=== PATIENT | male | born 2000 | race Caucasian/White ===

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

== ENCOUNTER → 2021-04-24 08:45 | Outpatient (CLI) | payer OTHER, MEDICAID, SELFPAY ==
[2021-04-24 09:22] LABS: COVID19 -Nasal RAPID Negative (Negative)
== END ==
PROVIDERS: Visit Provider Physician Assistant
DX: Z20.822 Contact with and (suspected) exposure to COVID-19 (principal); J02.9 Acute pharyngitis, unspecified
CPT/HCPCS: 87070; 87635; 87880

== ENCOUNTER 2022-07-21 23:16 | Emergency (ER) | payer OTHER, MEDICAID, SELFPAY ==
[2022-07-21 23:25] VITALS: BP 150/80; PULSE 72; RESP 18; TEMP 36.4; O2SAT 97
[2022-07-21] MEDS: DOXYCYCLINE HYCLATE 100 MG TABLET PO (23:42)
--- NOTE | 2022-07-21 23:55 | PC.NURSE ---
Exam deferred to DR Humphrey.
--- NOTE | 2022-07-22 06:54 | ED.EXTPRO ---
HPI - Extremity Problem General Chief complaint: Extremity Injury, Upper Stated complaint: left middle finger swollen and hurts to touch Time Seen by Provider: 07/21/22 23:29 Source: patient Mode of arrival: Ambulatory History of Present Illness HPI Narrative: 21-year-old male smoker presents with significant other and a chief complaint of pain and swelling of his left middle finger after an injury about 2 weeks ago. He states that he was helping a friend move furniture when he cut his finger on the edge of a dresser, he did not think anything of it and did not seek treatment. Over the past few days he started to get swelling of his middle finger and increasing pain. He is able to make a fist and denies any redness, pain or swelling of the remainder of his hand. His tetanus is up-to-date. He denies any red streaks or systemic complaints such as fever, chills nor nausea or vomiting Related Data Previous Rx's Medication Instructions Recorded doxycycline hyclate 100 mg tablet 100 mg PO BID #20 tabs 07/21/22 Allergies Allergy/AdvReac Type Severity Reaction Status Date / Time No Known Drug Allergies Allergy Verified 08/04/19 09:43 Review of Systems Review of Systems Narrative: GENERAL: Denies chills, fatigue, malaise, fever, sweats. HEENT: Denies sinus pain, ear pain, sore throat, difficulty swallowing, dizziness. RESPIRATORY: Denies dyspnea, cough, wheezing, hemoptysis, sputum. CARDIOVASCULAR: Denies chest pain, palpitations, orthopnea, edema, GASTROINTESTINAL: Denies nausea, vomiting, abdominal pain, diarrhea, constipation, melena. : Denies dysuria, frequency, incontinence, hematuria, urinary retention. MUSCULOSKELETAL: See HPI SKIN: Denies rash, skin lesions, or other NEUROLOGIC: Denies weakness, headache, numbness, change in speech, confusion, seizures, incoordination. PSYCHIATRIC: No concerning psychosocial issues. 12 point review of systems is negative except for those stated above Patient History Medical History Sinusitis Social History Smoking Status: Current every day smoker Smoking Status: Current every day smoker alcohol intake frequency: a few times a month Substance Use Type: does not use Exam Narrative Exam Narrative: GEN: AOx3 and in mild distress EYES: Pupils are equal, round, and reactive to light and accommodation. Extraoccular muscles are intact bilaterally. There is no subconjunctival hemorrhage or exudate. CHEST: Lungs are clear to auscultation bilaterally and free of wheezes, rales, or rhonchi. Heart rate is regular rhythm, there are no murmurs, clicks, rubs, or gallops. There is no chest wall tenderness. ABD: Abdomen is soft and nontender. There is no guarding or rebound. Bowel sounds are normal in all 4 quadrants. There is no mass or organomegaly. EXT: Full but slightly painful range of motion of the fingers of left hand, patient able to make a fist, there is some swelling and a healing wound on the flexor surface of the middle finger overlying the PIP. There is no fusiform swelling, no red streaks, no fluctuance or induration. No pain on palpation along flexor tendon to suggest flexor tenosynovitis SKIN: Warm, pink, and dry. No erythema or rash Initial Vital Signs Initial Vital Signs: Vital Signs Temperature 97.5 F L 07/21/22 23:25 Pulse Rate 72 07/21/22 23:25 Respiratory Rate 18 07/21/22 23:25 Blood Pressure 150/80 H 07/21/22 23:25 Pulse Oximetry 97 07/21/22 23:25 Oxygen Delivery Method 07/21/22 23:25 Course Orders Ordered: Discontinued Medications Doxycycline Hyclate (Doxycycline Hyclate 100 Mg Tablet) 100 mg PO NOW ONE Stop: 07/21/22 23:35 Last Admin: 07/21/22 23:42 Dose: 100 mg Documented By: AP Vital Signs Vital signs: Vital Signs - 8 hr 07/21/22 23:25 Temperature 97.5 F L Pulse Rate 72 Respiratory Rate 18 Blood Pressure 150/80 H Pulse Oximetry 97 Oxygen Delivery Method Room Air MDM - Extremity (Nontraumatic) MDM Narrative Medical decision making narrative: [21-year-old male smoker with left middle finger injury now swollen] Multiple etiologies for patient's symptoms considered including, but not limited to: [Cellulitis, abscess, flexor tenosynovitis versus other] Prior Charts reviewed: Prior primary care visits noted Patient with remote laceration and now development of redness and swelling but no sign of abscess. Tenosynovitis considered but thought unlikely given lack of pain along flexor tendon, fusiform swelling, painful passive extension, etc.. No evidence of felon. Tetanus is up-to-date. Findings and discharge diagnosis discussed with patient/family followed by verbalization of understanding Return precautions discussed with patient/family whom verbalize understanding of diagnosis and plan Discharge Plan Departure Patient Disposition: Home Clinical Impression: Cellulitis of finger of left hand Instructions: DI for Cellulitis -- Adult Activity Restrictions/Additional Instructions: *You have been diagnosed with [left middle finger cellulitis without evidence of abscess or tenosynovitis] *What to do: *Please continue to take your regular medications as directed. [x ] New medication prescriptions sent to your pharmacy: [ [facility]] [ ] New medication written as a paper prescription [ ] No new medications given *Please follow up with your primary care provider in 2-3 days, call for an appointment. Let them know you were seen in the Emergency Department and that we ask that you be seen in follow up. We will electronically transmit a record of today's note if your PCP is in our system *If you do not have a primary care provider please contact the [facility] Resource line at [phone]. They will ask some questions about your medical history and help get you set up with a doctor in the community. *Return to Emergency Department if you should have any new, worsening or concerning symptoms, such as [fever greater than 101 F, shaking chills, worsening pain, persistent vomiting or other bothersome symptoms] Prescriptions: New doxycycline hyclate 100 mg tablet 100 mg PO BID Qty: 20 0RF Referrals: Miscellaneous,DoctorMD [Primary Care Provider] - Stand Alone Forms: Patient Portal/API
== END 2022-07-21 23:56 | disposition home or self-care (01) ==
PROVIDERS: Emergency Provider Emergency Medicine
DX: L03.114 Cellulitis of left upper limb (principal)
CPT/HCPCS: 99283

== ENCOUNTER 2022-07-24 10:11 | Emergency (ER) | payer OTHER, MEDICAID, SELFPAY ==
[2022-07-24 10:13] VITALS: BP 123/70; PULSE 67; RESP 16; TEMP 36.8; O2SAT 100; BMI 17.9
--- NOTE | 2022-07-24 11:09 | ED.SKABFB ---
HPI - Skin/Abscess/Foreign Bdy General Chief complaint: Skin/Abscess/Foreign Body Stated complaint: Infection in finger Time Seen by Provider: 07/24/22 10:47 Source: patient Mode of arrival: Ambulatory Limitations: no limitations History of Present Illness HPI narrative: Patient seen here 2 days ago and treated for left finger cellulitis. At that time no drainable abscess. Patient states this morning had a lot of discharge that he pushed out of the wound. Has a wound to the volar aspect of the D IP joint of the left 3rd finger. No numbness or tingling. Related Data Previous Rx's Medication Instructions Recorded doxycycline hyclate 100 mg tablet 100 mg PO BID #20 tabs 07/21/22 Allergies Allergy/AdvReac Type Severity Reaction Status Date / Time No Known Drug Allergies Allergy Verified 07/24/22 10:16 Review of Systems Review of Systems Narrative: GENERAL: negative chills, fatigue, malaise, fever, sweats. HEENT: negative sinus pain, ear pain, sore throat RESPIRATORY: negative dyspnea, cough CARDIOVASCULAR: negative chest pain, palpitations GASTROINTESTINAL: negative nausea, vomiting, abdominal pain : negative dysuria, frequency, hematuria MUSCULOSKELETAL: negative muscle or bony pain SKIN: negative rash, skin lesions, positive skin injury NEUROLOGIC: negative weakness, numbness ROS Unobtainable: All systems reviewed & are unremarkable except as noted in HPI and below Patient History Medical History Sinusitis Social History Smoking Status: Current every day smoker Smoking Status: Current every day smoker alcohol intake frequency: holidays/special occasions only Substance Use Type: does not use Exam Narrative Exam Narrative: GENERAL: in no distress, not toxic not dyspneic HEAD: Normocephalic. EXTREMITIES: No gross deformities. Examination left middle finger. Able to fully flex and extend at the MCP PIP and DP joints. At this time clinically not tenosynovitis. There is callused skin at the volar aspect of the D IP joint. Able to express small amount of pus and sent for culture. Patient does agree for incision and drainage. NEURO: AOx4. SKIN: Warm and dry PSYCH: Not anxious, is cooperative Initial Vital Signs Initial Vital Signs: Vital Signs Temperature 98.3 F 07/24/22 10:13 Pulse Rate 67 07/24/22 10:13 Respiratory Rate 16 07/24/22 10:13 Blood Pressure 123/70 07/24/22 10:13 Pulse Oximetry 100 07/24/22 10:13 Oxygen Delivery Method 07/24/22 10:13 Procedures Abscess I/D I&D #1: Time of procedure: 11:14 Site: other (Left middle finger) Side (if applicable): left Local Anesthetic: lidocaine 2% Amount of anesthesia used (mL): 2 Technique: incised with #11 blade Amount of fluid expressed (mL): 0.5 Irrigation: Yes Packing used?: none Complications: other (None) Course Orders Ordered: Discontinued Medications Bacitracin (Bacitracin Oint 0.9 Gm Pckt) 1 applic TOP NOW ONE Stop: 07/24/22 11:07 Last Admin: 07/24/22 11:21 Dose: 1 applic Documented By: LIZA Vital Signs Vital signs: Vital Signs - 8 hr 07/24/22 10:13 Temperature 98.3 F Pulse Rate 67 Respiratory Rate 16 Blood Pressure 123/70 Pulse Oximetry 100 Oxygen Delivery Method Room Air MDM - Skin/Abscess/Foreign Bdy MDM Narrative Medical decision making narrative: Patient seen here 2 days ago and treated for left finger cellulitis. At that time no drainable abscess. Patient states this morning had a lot of discharge that he pushed out of the wound. Has a wound to the volar aspect of the D IP joint of the left 3rd finger. No numbness or tingling. MDM CC: Left finger swelling and drainage Complicating co-morbidities: None Data collected from: Patient Medical records reviewed: Here 2 days ago Differential considered: Includes but not limited to abscess/tenosynovitis paronychia/felon Exam documented above, pertinent findings include: Drainage from wound Treatments: Incision and drainage Re-evaluations: Bleeding controlled at time of discharge. Discussion: Appropriate for discharge home. Exam is reassuring. Wound culture sent. Patient already on doxycycline. A plus pattern incision drainage used for drainage. Careful evaluation not to injure tendon below. Patient still able to flex and extend fully at MCP PIP and DP joints. Return precautions reviewed patient. Work note provided. Primary care clinic provided. Patient desires discharge home. Diagnosis: Finger abscess Discharge Plan Departure Patient Disposition: Home Clinical Impression: Abscess of skin or subcutaneous tissue Instructions: DI for Skin Abscess, DI for Incision and Drainage Activity Restrictions/Additional Instructions: Please continue your antibiotic course and be sure to complete all of the medication. Change dressing daily with warm soap and water and apply thin layer of topical antibiotic. Work note has been provided for you. Primary clinic number as well. Call provided primary care referral phone number to establish family doctor. Call [phone] Prescriptions: No Action doxycycline hyclate 100 mg tablet 100 mg PO BID Qty: 20 0RF Referrals: Miscellaneous,Doctor, MD [Primary Care Provider] - Stand Alone Forms: Patient Portal/API, Work Release Note
[2022-07-24] MEDS: BACITRACIN OINT 0.9 GM PCKT 1 APPLIC TOP (11:21)
[2022-07-24 11:29] VITALS: BP 114/56; PULSE 61; RESP 18; O2SAT 98
== END 2022-07-24 11:31 | disposition home or self-care (01) ==
PROVIDERS: Emergency Provider Emergency Medicine
DX: L02.512 Cutaneous abscess of left hand (principal)
CPT/HCPCS: 10060; 87070; 87075; 87077; 87147; 87186; 87205; 99282; 99283

== ENCOUNTER 2023-04-03 13:55 | Emergency (ER) | payer OTHER, SELFPAY ==
[2023-04-03 13:58] VITALS: BP 122/61; PULSE 53; RESP 16; TEMP 37.2; O2SAT 99; BMI 17.9
--- NOTE | 2023-04-03 14:02 | DI.RAD.S_ITS ---
PROCEDURE: XR ANKLE RT MIN 3V INDICATIONS: dropped pallet on foot TECHNIQUE: 3 views of the ankle were acquired. COMPARISON: None. FINDINGS: Bones: No fractures or dislocations but there is a small focus of talar dome medial subchondral lucency with slight surrounding sclerosis overall measuring an estimated 6 mm in maximal dimension, likely chronic. Ankle mortise is normally aligned. No suspicious bony lesions. Soft tissues: No tibiotalar joint effusion. Achilles tendon appears normal. IMPRESSION: Acute trauma is not definitely found. 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 Follow-up elective MR scanning may be warranted given this finding, however. Despite its presumed chronicity orthopedic consultation likely is warranted electively. Dictated by: Aashish Wise M.D. on 04/03/2023 at 14:46 Approved by: Aashish Wise M.D. on 04/03/2023 at 14:50
--- NOTE | 2023-04-03 14:02 | DI.RAD.S_ITS ---
PROCEDURE: XR FOOT RT MIN 3V INDICATIONS: dropped pallet on foot TECHNIQUE: 3 views of the foot were acquired. COMPARISON: [facility], CR, XR ANKLE RT MIN 3V, 04/03/2023, 14:04. FINDINGS: Bones: No fractures or dislocations. No suspicious bony lesions. Soft tissues: No tibiotalar joint effusion. Achilles tendon appears normal. IMPRESSION: No trauma found. Please also refer to ankle plain film report from same day a discussing a small medial talar dome focus of osteochondromalacia. Dictated by: Aashish Wise M.D. on 04/03/2023 at 14:50 Approved by: Aashish Wise M.D. on 04/03/2023 at 14:52
--- NOTE | 2023-04-03 15:16 | ED.LOWEXIN ---
HPI - Extremity Injury (Lower) <Charlette Brito PA-C - Last Filed: 04/03/23 15:43> General Chief Complaint: Extremity Injury, Lower Stated Complaint: rt foot inj l&I Time Seen by Provider: 04/03/23 14:03 Source: patient Mode of arrival: Wheelchair History of Present Illness HPI Narrative: 22-year-old male presents to the ED for a work-related injury that occurred today. States he dropped a Pallet on his right foot/ankle. States he had immediate pain and has been unable to walk on it due to pain. Denies any previous injury to the affected area. He is not taken any medication for the pain. States pain is mainly in the anterior ankle and not on the foot. He denies any numbness or tingling of the area or any open wounds. He is unable to walk on the right foot and was wheeled in with a wheelchair Related Data Previous Rx's Medication Instructions Recorded doxycycline hyclate 100 mg tablet 100 mg PO BID #20 tabs 07/21/22 Allergies Allergy/AdvReac Type Severity Reaction Status Date / Time No Known Drug Allergies Allergy Verified 07/24/22 10:16 Review of Systems <Charlette Brito PA-C - Last Filed: 04/03/23 15:43> Review of Systems ROS Unobtainable: All systems reviewed & are unremarkable except as noted in HPI and below Patient History <Charlette Brito PA-C - Last Filed: 04/03/23 15:43> Medical History Sinusitis Social History Smoking Status: Current every day smoker Smoking Status: Current every day smoker tobacco type: vaping alcohol intake frequency: holidays/special occasions only Substance Use Type: does not use Exam <Charlette Brito PA-C - Last Filed: 04/03/23 15:43> Narrative Exam Narrative: GENERAL: [22] year old patient appears stated age. Well-developed patient, in no acute distress. HEAD: Atraumatic. Normocephalic. EYES: Pupils equal round and reactive. Extraocular motions intact. No scleral icterus. No injection or drainage. ENT: Nose without bleeding, purulent drainage.Airway patent. NECK: Trachea midline. Non tender RESPIRATORY: Respiratory rate and effort normal EXTREMITIES: Right ankle unremarkable in appearance. No ecchymosis, edema, deformity of any kind. Patient states unable to bear weight, was brought in with a wheelchair. Passive and active range of motion intact but patient expresses discomfort. Generalized tenderness on the anterior ankle with no pinpoint tenderness of the ankle or foot. Neurovascular intact. No open wound of any kind. NEURO: AOx3. SKIN: No rash or erythema of visible areas Initial Vital Signs Initial Vital Signs: Vital Signs Temperature 98.9 F 04/03/23 13:58 Pulse Rate 53 L 04/03/23 13:58 Respiratory Rate 16 04/03/23 13:58 Blood Pressure 122/61 04/03/23 13:58 Pulse Oximetry 99 04/03/23 13:58 Oxygen Delivery Method Room Air 04/03/23 13:58 <Therese Peres DO - Last Filed: 04/04/23 09:41> Initial Vital Signs Initial Vital Signs: Vital Signs Temperature 98.9 F 04/03/23 13:58 Pulse Rate 53 L 04/03/23 13:58 Respiratory Rate 16 04/03/23 13:58 Blood Pressure 122/61 04/03/23 13:58 Pulse Oximetry 99 04/03/23 13:58 Oxygen Delivery Method Room Air 04/03/23 13:58 Course <Charlette Brito PA-C - Last Filed: 04/03/23 15:43> Orders Ordered: Discontinued Medications Ibuprofen (Ibuprofen 400 Mg Tablet) 800 mg PO NOW ONE Stop: 04/03/23 15:21 Last Admin: 04/03/23 15:45 Dose: 800 mg Documented By: RLS Vital Signs Vital signs: Vital Signs - 8 hr 04/03/23 13:58 Temperature 98.9 F Pulse Rate 53 L Respiratory Rate 16 Blood Pressure 122/61 Pulse Oximetry 99 Oxygen Delivery Method Room Air <DO Richy Rhodes Last Filed: 04/04/23 09:41> Orders Ordered: Discontinued Medications Ibuprofen (Ibuprofen 400 Mg Tablet) 800 mg PO NOW ONE Stop: 04/03/23 15:21 Last Admin: 04/03/23 15:45 Dose: 800 mg Documented By: RLS Vital Signs Vital signs: Vital Signs - 8 hr 04/03/23 13:58 Temperature 98.9 F Pulse Rate 53 L Respiratory Rate 16 Blood Pressure 122/61 Pulse Oximetry 99 Oxygen Delivery Method Room Air MDM - Extremity Injury (Lower) <Charlette Brito PA-C - Last Filed: 04/03/23 15:43> Imaging Data Extremity x-ray #1: Radiologist's Impression: [address] [address] XRay Report Signed Patient: Pantera Julian MR#: [id number] : 2000 Acct:[id number] Age/Sex: 22 / M Date of Service: 04/03/23 Loc: ED Accession Number: [id number] Procedure: XR foot RT min 3V Ordering Provider: Therese Peres D.O. PROCEDURE: XR FOOT RT MIN 3V INDICATIONS: dropped pallet on foot TECHNIQUE: 3 views of the foot were acquired. COMPARISON: [facility], , XR ANKLE RT MIN 3V, 04/03/2023, 14:04. FINDINGS: Bones: No fractures or dislocations. No suspicious bony lesions. Soft tissues: No tibiotalar joint effusion. Achilles tendon appears normal. IMPRESSION: No trauma found. Please also refer to ankle plain film report from same day a discussing a small medial talar dome focus of osteochondromalacia. Dictated by: Aashish Wise M.D. on 04/03/2023 at 14:50 Approved by: Aashish Wise M.D. on 04/03/2023 at 14:52 Extremity x-ray #2: Radiologist's Impression: [address] [address] XRay Report Signed Patient: Pantera Julian MR#: [id number] : 2000 Acct:[id number] Age/Sex: 22 / M Date of Service: 04/03/23 Loc: ED Accession Number: [id number] Procedure: XR ankle RT min 3V Ordering Provider: Thersee Peres D.O. PROCEDURE: XR ANKLE RT MIN 3V INDICATIONS: dropped pallet on foot TECHNIQUE: 3 views of the ankle were acquired. COMPARISON: None. FINDINGS: Bones: No fractures or dislocations but there is a small focus of talar dome medial subchondral lucency with slight surrounding sclerosis overall measuring an estimated 6 mm in maximal dimension, likely chronic. Ankle mortise is normally aligned. No suspicious bony lesions. Soft tissues: No tibiotalar joint effusion. Achilles tendon appears normal. IMPRESSION: Acute trauma is not definitely found. 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 Follow-up elective MR scanning may be warranted given this finding, however. Despite its presumed chronicity orthopedic consultation likely is warranted electively. Dictated by: Aashish Wise M.D. on 04/03/2023 at 14:46 Approved by: Aashish Wise M.D. on 04/03/2023 at 14:50 [facility] Narrative Medical decision making narrative: This 22-year-old male who is in the ED today for right ankle and foot pain due to work-related injury that occurred today. He dropped a Pallet on his anterior ankle/foot while at work today. He states he has been unable to bear weight since that time. He denies prior injury to the affected area. On exam there is no notable ecchymosis, edema, or any deformity. He has intact passive and active range of motion and normal bilateral pulses and sensation. His tenderness is generalized across the anterior ankle with no pinpoint areas of tenderness. X-ray negative for fracture of the ankle or foot. Patient requesting ibuprofen and crutches since he is unable to bear weight. These were provided and a work note was given. The patient instructed on supportive care including rest, ice, compression, elevation. If no improvement in his pain within the next 7-10 days I recommend he follow up with his primary care provider. Stable for discharge [] Multiple etiologies for patient's symptoms considered including, but not limited to: Ankle/foot sprain, contusion, fracture Prior Charts reviewed: None Labs reviewed and interpreted by myself: None Imaging reviewed: X-ray of ankle and foot Consultations: None Findings and discharge diagnosis discussed with patient/family followed by verbalization of understanding Return precautions discussed with patient/family whom verbalize understanding of diagnosis and plan Discharge Plan Departure Patient Disposition: Home Clinical Impression: Contusion of ankle, right Qualifiers: Encounter type: initial encounter Qualified Code(s): S90.01XA - Contusion of right ankle, initial encounter Instructions: DI for Ankle Sprain Activity Restrictions/Additional Instructions: You were seen in the emergency department today for an injury of her foot and ankle that occurred when you dropped a heavy item on the area. We completed an x-ray which showed no fracture of the ankle or foot. You were given ibuprofen 800 mg for pain here in the ED. due to your difficulty putting weight on the area you were given crutches. Please continue to use these until you have 0 pain with weight-bearing. Please continue to rest, ice, elevate, and wear Tommie bandage to the affected ankle. If you continued to have pain that is not improving in the next 7-10 days please follow-up with your primary doctor for re-evaluation. Prescriptions: No Action doxycycline hyclate 100 mg tablet 100 mg PO BID Qty: 20 0RF Referrals: Miscellaneous,Doctor, MD [Primary Care Provider] - Stand Alone Forms: Patient Portal/API, Work Release Note ED Sign-out <Therese Peres DO - Last Filed: 04/04/23 09:41> Cosign ED Attending Missy Attestation: I was immediately available in the department for consultation. Documentation has been reviewed.
[2023-04-03] MEDS: IBUPROFEN 400 MG TABLET 800 MG PO (15:45)
== END 2023-04-03 16:01 | disposition home or self-care (01) ==
PROVIDERS: Emergency Provider Physician Assistant
DX: S90.01XA Contusion of right ankle, initial encounter (principal); W22.8XXA Striking against or struck by other objects, initial encounter; Y99.0 Civilian activity done for income or pay
CPT/HCPCS: 73610; 73630; 99283; 99284